=== PATIENT | female | born 1975 | race Two or more races ===

== ENCOUNTER 2020-04-08 14:39 | Emergency (ER) | payer MEDICAID ==
[~2020-04-08] VITALS: Ht 170.2 cm; Wt 108.8 kg
[2020-04-08 14:43] VITALS: BP 132/76
--- NOTE | 2020-04-08 15:00 | NUR ---
BIT INSIDE OF L CHEEK, DRAINGING PUS, NOT HARD TO SWALLOW, NO FEVERS. X1 WEEK. MOTRIN AT 1545 Hx of abcessed teeth in area. Seen for same at [facility] recently with resolution after po abx
== END 2020-04-08 15:26 | disposition home or self-care (01) ==
LOC: ED 15:15
DX: S01.512A Laceration without foreign body of oral cavity, initial encounter (principal); X58.XXXA Exposure to other specified factors, initial encounter; Y93.89 Activity, other specified; Y92.89 Other specified places as the place of occurrence of the external cause; Y99.8 Other external cause status
CPT/HCPCS: 99283